=== PATIENT | female | born 1930 | race Caucasian/White ===

== ENCOUNTER → 2017-05-22 | Outpatient (CLI) | payer MEDICARE ==
[~2017-05-22] MED LIST: ALBU8.5H IH; AMOX-556 PO; ASPI-1267; AUG875 PO; AZI250 PO; AZIT-17 PO; AZIT-18 PO; BACDS PO; BENZ100C4 PO; CARV25TA78 PO; CEP500 PO; CEPH250C37 PO; GUALA600 PO; HCTZ25 PO; HYDR-2966 PO; HYDR-385 PO; LABE200T31 PO; LISI2.5T60; LISI5TAB25 PO; LOR5/325 PO; MET500; METF-410 PO; MULT-1335; OXYGEN INH; PRE20 PO; PRED20TA6 PO; SIMV-44 PO; TIO18R IH
--- NOTE | 2017-05-22 13:36 | RADIOLOGY IMAGING REPORT ---
FACILITY: [facility] PATIENT NAME: Sharon Rahman : 1930 MR: [id number] V: [id number] EXAM DATE: ORDERING PHYSICIAN: ALESSANDRO LYNN TECHNOLOGIST: Location: [facility] - [place] Patient: Sharon Rahman : 1930 Visit/Account:[id number] Date of Sevice: 05/22/2017 CHEST W/O CONTRAST History: History of breast cancer. Oxygen dependent. No other complaints. Additional history: Previous studies state patient has non-small cell lung cancer. TECHNIQUE: Contiguous axial images were performed through the chest to the level of the adrenal gla nds. No IV contrast was administered. Coronal and sagittal reformatting was also performed. One of t he following dose optimization techniques was utilized in the performance of this exam: Automated exp osure control; adjustment of the mA and/or kV according to the patient's size; or use of an iterative reconstruction technique. Specific details can be referenced in the facility's radiology CT exam o perational policy. COMPARISON STUDIES: Comparison chest CT 12/03/2016 and 06/11/2016. Lungs / Pleura: There is a pleural-based mass in the anterior right upper lobe which as increased i n size from previous exams. In November, it measured 2.8 x 1.4 cm in diameter and had not really marlene nged from May 2016. However, today it now measures 5.1 x 2.5 cm diameter and abuts the pleura over a wide area. It does not definitely invade the chest wall. There is biapical pulmonary consolidation which is stable from previous exams. There are multi focal small groundglass opacities in both lungs which are more numerous than the previous study. Several micronodules seen in the left lung are stabl e. Mediastinum/nodes: No definite evidence of mediastinal adenopathy. Heart and vessels: Coronary artery calcifications are noted. Heart normal in size. Musculoskeletal / Body wall: Degenerative changes noted. No focal lesions are seen. Upper abdomen: There are stable bilateral adrenal nodules. Additional findings: Again noted is a heterogenous appearance the thyroid gland compatible with a goi ter which is stable. Remote right mastectomy and right axillary lymph node dissection. IMPRESSION: Enlarging right anterior pleural-based lung mass is concerning for malignancy. This lies subjacent to the right mastectomy. Evolving radiation induced pulmonary changes or pneumonia also possible althou gh considered less likely. This mass is readily amenable to percutaneous CT-guided biopsy if deemed c linically appropriate Biapical pulmonary/pleural consolidation stable Multifocal small groundglass opacities in both lungs probably inflammatory in nature. Stable small adrenal nodules. Remote right mastectomy Report Dictated By: Joe Javed MD at 05/22/2017 12:37 PM Report E-Signed By: Joe Javed MD at 05/22/2017 1:32 PM WSN:[id number]
== END ==
LOC: CT 10:32
PROVIDERS: ATTEND Radiology Radiation Oncology
DX: R91.8 Other nonspecific abnormal finding of lung field (principal); Z90.11 Acquired absence of right breast and nipple
CPT/HCPCS: 71250

== ENCOUNTER 2017-06-01 15:00 | Emergency (ER) | payer MEDICARE ==
--- NOTE | 2017-06-01 15:08 | ER Report ---
History and Physical Time Seen By MD: 15:08 HPI/ROS CHIEF COMPLAINT: Vaginal bleeding HISTORY OF PRESENT ILLNESS: This is an 87-year-old female who presents to the emergency department for vaginal bleeding. Patient states that today she developed some UTI symptoms, burning sensation with urination and urgency ago. She is also concerned that for "a while now" she's had intermittent vaginal bleeding without pain. She says that she was nervous about coming in for an evaluation and today with the UTI symptoms she decided come in for further evaluation. She denies pain at this time. No aches or chills. No shortness of breath or chest pain. Patient does have a history of breast and lung CA. REVIEW OF SYSTEMS: Constitutional: No fever, no chills. Eyes: No discharge. ENT: No sore throat. Cardiovascular: No chest pain, no palpitations. Respiratory: No cough, no shortness of breath. Gastrointestinal: No abdominal pain, no vomiting. Genitourinary: As above. BAND NAILER: As above. Musculoskeletal: No back pain. Skin: No rashes. Neurological: No headache. Allergies: Coded Allergies: No Known Allergies (Verified Allergy, Mild, 10/28/16) Home Meds Active Scripts Nitrofurantoin Monohyd/M-Cryst (MACROBID 100 MG CAPSULE) 100 Mg Capsule, 100 MG PO BID for 7 Days, #14 CAPSULE Prov:SHELBY BUSTOS TRADE SHOW COORDINATOR-BC 06/01/17 Reported Medications Metformin Hcl (METFORMIN HCL) 500 Mg Tablet, 1 TAB PO QDAY, TAB 03/27/15 Lisinopril (LISINOPRIL) 5 Mg Tablet, 5 MG PO DAILY, #90 06/08/14 Carvedilol (CARVEDILOL) 25 Mg Tablet, 25 MG PO BID 12/16/12 Multivitamins W-Minerals (Multiple Vitamin) 1 Tab Tablet, DAILY 10/13/11 Aspirin (ADULT LOW DOSE ASPIRIN EC) 81 Mg Tablet.dr, DAILY 10/13/11 Simvastatin (Zocor) 40 Mg Tablet, 40 MG PO DAILY 10/13/11 Tiotropium [place] (Spiriva (Or Equiv)) 18 Mcg Inh, IH DAILY 10/13/11 Oxygen (Oxygen) 2 L Inha, 3 L INH, 0 Refills 3 L/min continuously. 06/14/07 Past Medical/Surgical History Patient has a past medical and surgical history of angina, hypertension, hypercholesterolemia, emphysema, pneumonia, COPD, colonoscopy, GERD, breast cancer with mastectomy, arthritis, wears dentures, wears glasses, non-insulin- dependent diabetic, skin cancer, lung cancer, radiation treatment, chemotherapy treatment, right rotator cuff repair, tonsillectomy, and several skin cancer excisions. Reviewed Nurses Notes: Yes Hx Smoking: No (QUIT 1999) Smoking Status: Former Smoker Hx Substance Use Disorder: No Hx Alcohol Use: Yes (very rare) Constitutional Vital Sign - Last 24 Hours 06/01/17 06/01/17 06/01/17 06/01/17 15:00 15:09 15:10 15:15 Pulse ??? 82 76 Resp 18 B/P (MAP) 158/64 158/64 (95) Pulse Ox 95 81 O2 Delivery Room Air 06/01/17 06/01/17 06/01/17 06/01/17 15:30 15:45 15:55 16:00 Pulse 74 ??? 72 B/P (MAP) ???/??? (1577) 145/114 (124) 140/65 (90) Pulse Ox 96 94 99 06/01/17 06/01/17 06/01/17 06/01/17 16:15 16:30 16:45 16:50 Pulse 74 ??? 75 75 B/P (MAP) ???/??? (7265) Pulse Ox 98 98 98 06/01/17 06/01/17 06/01/17 06/01/17 17:00 17:05 17:20 17:30 Pulse 75 75 B/P (MAP) 150/72 (98) ???/??? (1665) Pulse Ox 98 98 06/01/17 06/01/17 17:35 17:50 Pulse ??? 76 B/P (MAP) 153/87 (109) Pulse Ox 93 Intake and Output 06/01/17 06/01/17 06/02/17 15:00 23:00 07:00 Output Total 50 ml Balance -50 ml Physical Exam General Appearance: The patient is alert, has no immediate need for airway protection and no signs of toxicity. Eyes: Pupils equal and round no pallor or injection. ENT, Mouth: Mucous membranes are moist. Dentures. Respiratory: There are no retractions, lungs are clear to auscultation. Cardiovascular: Regular rate and rhythm, very faint systolic murmur, no clicks or rubs. Gastrointestinal: Abdomen is soft and non tender, no masses, bowel sounds normal. Neurological: Alert and oriented 4. Moving all extremities. No focal neuro deficits. Following all commands. Skin: Warm and dry, no rashes. Musculoskeletal: Neck is supple non tender. Extremities are nontender, nonswollen and have full range of motion. DIFFERENTIAL DIAGNOSIS: After history and physical exam differential diagnosis was considered for abdominal pain in a female including but not limited to ovarian cyst, pelvic inflammatory disease, ovarian torsion, urinary tract infection, ovarian cancer, uterine cancer, metastatic cancer and appendicitis. Medical Decision Making Data Points Result Diagram: 06/01/17 1555 06/01/17 1555 Laboratory Hematology Test 06/01/17 15:55 Red Blood Count 3.65 M/uL (4.17-5.56) Mean Corpuscular Volume 88.7 fL (80.0-96.0) Mean Corpuscular Hemoglobin 29.8 pg (26.0-33.0) Mean Corpuscular Hemoglobin Concent 33.6 g/dL (32.0-36.0) Red Cell Distribution Width 15.0 % (11.5-14.5) Mean Platelet Volume 8.5 fL (7.2-11.1) Neutrophils (%) (Auto) 71.7 % (39.4-72.5) Lymphocytes (%) (Auto) 16.0 % (17.6-49.6) Monocytes (%) (Auto) 7.5 % (4.1-12.4) Eosinophils (%) (Auto) 3.8 % (0.4-6.7) Basophils (%) (Auto) 1.0 % (0.3-1.4) Nucleated RBC Relative Count (auto) 0.0 /100WBC Neutrophils # (Auto) 6.4 K/uL (2.0-7.4) Lymphocytes # (Auto) 1.4 K/uL (1.3-3.6) Monocytes # (Auto) 0.7 K/uL (0.3-1.0) Eosinophils # (Auto) 0.3 K/uL (0.0-0.5) Basophils # (Auto) 0.1 K/uL (0.0-0.1) Nucleated RBC Absolute Count (auto) 0.00 K/uL Urine Color Yellow Urine Clarity Cloudy Urine pH 6.0 pH (4.8-9.5) Urine Specific [place] 1.018 Urine Protein 100 mg/dL (NEGATIVE) Urine Glucose (UA) Negative mg/dL (NEGATIVE) Urine Ketones Negative mg/dL (NEGATIVE) Urine Blood Small (NEGATIVE) Urine Nitrite Positive (NEGATIVE) Urine Bilirubin Negative (NEGATIVE) Urine Urobilinogen Negative mg/dL (0.2-1.9) Urine Leukocyte Esterase Moderate (NEGATIVE) Urine RBC 11 /HPF (0-2/HPF) Urine WBC 206 /HPF (0-5/HPF) Urine Squamous Epithelial Cells None /LPF (NONE-FEW) Urine Bacteria Moderate /HPF (NONE-FEW) Urine Mucus None /HPF (NONE-FEW) Sodium Level 137 mmol/L (137-145) Potassium Level 4.0 mmol/L (3.5-5.0) Chloride Level 99 mmol/L (98-107) Carbon Dioxide Level 26 mmol/L (22-31) Blood Urea Nitrogen 16 mg/dl (7-18) Creatinine 0.60 mg/dl (0.52-1.04) Glomerular Filtration Rate Calc > 60.0 Random Glucose 81 mg/dl (75-110) Calcium Level 9.5 mg/dl (8.4-10.2) Total Bilirubin 1.0 mg/dl (0.2-1.3) Aspartate Amino Transf (AST/SGOT) 21 U/L (0-35) Alanine Aminotransferase (ALT/SGPT) 28 U/L (0-56) Alkaline Phosphatase 132 U/L (0-126) Total Protein 7.9 gm/dl (6.3-8.2) Albumin 4.1 g/dl (3.5-5.0) Chemistry Test 06/01/17 15:55 White Blood Count 9.0 k/uL (4.5-11.0) Red Blood Count 3.65 M/uL (4.17-5.56) Hemoglobin 10.9 g/dL (12.0-16.0) Hematocrit 32.4 % (34.0-47.0) Mean Corpuscular Volume 88.7 fL (80.0-96.0) Mean Corpuscular Hemoglobin 29.8 pg (26.0-33.0) Mean Corpuscular Hemoglobin Concent 33.6 g/dL (32.0-36.0) Red Cell Distribution Width 15.0 % (11.5-14.5) Platelet Count 264 K/uL (150-450) Mean Platelet Volume 8.5 fL (7.2-11.1) Neutrophils (%) (Auto) 71.7 % (39.4-72.5) Lymphocytes (%) (Auto) 16.0 % (17.6-49.6) Monocytes (%) (Auto) 7.5 % (4.1-12.4) Eosinophils (%) (Auto) 3.8 % (0.4-6.7) Basophils (%) (Auto) 1.0 % (0.3-1.4) Nucleated RBC Relative Count (auto) 0.0 /100WBC Neutrophils # (Auto) 6.4 K/uL (2.0-7.4) Lymphocytes # (Auto) 1.4 K/uL (1.3-3.6) Monocytes # (Auto) 0.7 K/uL (0.3-1.0) Eosinophils # (Auto) 0.3 K/uL (0.0-0.5) Basophils # (Auto) 0.1 K/uL (0.0-0.1) Nucleated RBC Absolute Count (auto) 0.00 K/uL Urine Color Yellow Urine Clarity Cloudy Urine pH 6.0 pH (4.8-9.5) Urine Specific [place] 1.018 Urine Protein 100 mg/dL (NEGATIVE) Urine Glucose (UA) Negative mg/dL (NEGATIVE) Urine Ketones Negative mg/dL (NEGATIVE) Urine Blood Small (NEGATIVE) Urine Nitrite Positive (NEGATIVE) Urine Bilirubin Negative (NEGATIVE) Urine Urobilinogen Negative mg/dL (0.2-1.9) Urine Leukocyte Esterase Moderate (NEGATIVE) Urine RBC 11 /HPF (0-2/HPF) Urine WBC 206 /HPF (0-5/HPF) Urine Squamous Epithelial Cells None /LPF (NONE-FEW) Urine Bacteria Moderate /HPF (NONE-FEW) Urine Mucus None /HPF (NONE-FEW) Glomerular Filtration Rate Calc > 60.0 Calcium Level 9.5 mg/dl (8.4-10.2) Total Bilirubin 1.0 mg/dl (0.2-1.3) Aspartate Amino Transf (AST/SGOT) 21 U/L (0-35) Alanine Aminotransferase (ALT/SGPT) 28 U/L (0-56) Alkaline Phosphatase 132 U/L (0-126) Total Protein 7.9 gm/dl (6.3-8.2) Albumin 4.1 g/dl (3.5-5.0) Urinalysis Test 06/01/17 15:55 Urine Color Yellow Urine Clarity Cloudy Urine pH 6.0 pH (4.8-9.5) Urine Specific [place] 1.018 Urine Protein 100 mg/dL (NEGATIVE) Urine Glucose (UA) Negative mg/dL (NEGATIVE) Urine Ketones Negative mg/dL (NEGATIVE) Urine Blood Small (NEGATIVE) Urine Nitrite Positive (NEGATIVE) Urine Bilirubin Negative (NEGATIVE) Urine Urobilinogen Negative mg/dL (0.2-1.9) Urine Leukocyte Esterase Moderate (NEGATIVE) Urine RBC 11 /HPF (0-2/HPF) Urine WBC 206 /HPF (0-5/HPF) Urine Squamous Epithelial Cells None /LPF (NONE-FEW) Urine Bacteria Moderate /HPF (NONE-FEW) Urine Mucus None /HPF (NONE-FEW) EKG/Imaging Imaging Location: [facility] - [place] Patient: Sharon Rahman : 1930 Visit/Account:[id number] [facility]: 06/01/2017 CT abdomen and pelvis with IV contrast Indication: Vaginal bleeding. Evaluate for cancer. Comparison: None available. . Technique: Axial CT images were obtained through the abdomen and pelvis during injection of nonionic iodinated intravenous contrast. Reformatted coronal and sagittal images were also obtained. One of the following dose optimization techniques was utilized in the performance of this exam: Automated exposure control; adjustment of the mA and/ or kV according to the patient's size; or use of an iterative reconstruction technique. Specific details can be referenced in the facility's radiology CT exam operational policy. Contrast: 75 ml of Isovue-370 IV contrast. Findings: Lower lung rico: Both lungs show some scarring. The right lateral lower lobe does show a 7 mm nodular type opacity. The left lower lobe shows a 4 mm nodular type opacity and a 5 mm nodular type opacity. These appear to be stable from the chest CT on 05/22/2017. Liver: No focal parenchymal abnormality of the liver. Biliary: Gallbladder appears unremarkable as well as the intra and extra hepatic biliary system. Pancreas: No focal normality. Spleen: No focal abnormality. Adrenal glands: Both adrenal glands do show thickening which could be due to hyperplasia. No discrete defined nodule. Kidneys / retroperitoneum: The right superior kidney does show 3 mm stone in the collecting system without hydronephrosis. No other stones or hydronephrosis in either kidney. The right kidney shows a couple subcentimeter hypodensities are too small to characterize and most likely tiny cysts. No discrete solid renal lesions. Bowel / peritoneum / mesenteries: Sigmoid colon does show a few diverticula without pericolonic inflammation. The colon shows no other focal abnormality. The appendix is not definitely visualized. No secondary signs of appendicitis. Small bowel shows no focal normality or obstruction. Stomach is decompressed and grossly normal. No free air, free fluid, fluid collections or areas of inflammation. Lymph node assessment: No pathologic adenopathy identified. Pelvic structures: Status post hysterectomy. The vaginal cuff shows no focal normality. The right adnexal region does show a 2.4 cm cyst. If the urinary bladder does show circumferential wall thickening without focal abnormality. Vessels: Atherosclerotic calcific changes of the aorta. The infrarenal abdominal aorta does show aneurysmal dilatation measuring 3.4 x 3.6 cm with a length of approximately 4.6 cm. No periaortic fluid or inflammation. No other indication of aneurysm. Musculoskeletal / Body wall: No acute or aggressive osseous abnormality. Degenerative changes spine and hips. Hemangioma in the L2 vertebral body. IMPRESSION: 1. Vaginal cuff shows no focal abnormality. There is a right adnexal cyst present. 2. The urinary bladder shows circumferential wall thickening which is mildly hazy. This could represent infection or inflammation. No discrete focal abnormality of the urinary bladder. 3. Diverticulosis without radiographic indication diverticulitis. 4. Nonobstructing right renal calculi. 5. 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 6. Other chronic findings as above. Report Dictated By: Rosendo Hernandez at 06/01/2017 4:43 PM Report E-Signed By: Rosendo Hernandez at 06/01/2017 4:57 PM WSN:[id number] ED Course/Re-evaluation Clinical Indication for ER IV: IV Access ED Course The patient was admitted to room. A history of physical obtained. Differential diagnoses were considered. An IV was started. A CBC, CMP were obtained. Laboratory studies unremarkable. A UA was obtained. UA showing a urinary tract infection. A contrast CT abdomen and pelvis showing a right adnexal cyst, bladder wall thickening which could represent infection no focal abnormality of the bladder, diverticulosis, right sided nonobstructing renal calculi, aneurysmal dilation without acute abnormality. I did review these results with the patient. I also offered a pelvic exam and the patient declined as noted below, she will follow up with her primary care provider or B[facility] for follow- up on the vaginal bleeding. Patient continues to deny pain. Patient has no other complaints. Patient was agreeable with this plan of care and discharged home. 06/01/2017 5:37:47 pm I did explain to the patient that I was concerned about the vaginal bleeding and I would need to visualize the vaginal vault and the surrounding area I did offer a pelvic exam and she declined a pelvic exam she states she did feel better with an BAND NAILER. I said that's fine shirt of follow- up within the next week for evaluation. Patient was in agreement with this. Decision to Disposition Date: Jun 01, 2017 Decision to Disposition Time: 17:37 Depart Departure Latest Vital Signs Vital Signs Date Time Temp Pulse Resp B/P (MAP) Pulse Ox O2 Delivery O2 Flow Rate FiO2 06/01/17 17:50 76 153/87 (109) 93 06/01/17 15:09 18 Room Air Impression: Primary Impression: Urinary tract infection Additional Impression: Renal calculus, right Condition: Improved Disposition: HOME OR SELF-CARE Referrals: YARELY STERLING MD (PCP) YARELY JACOBSEN MD [facility] Nitrofurantoin Monohyd/M-Cryst (MACROBID 100 MG CAPSULE) 100 Mg Capsule 100 MG PO BID for 7 Days, #14 CAPSULE Prov: SHELBY BUSTOS TRADE SHOW COORDINATOR-BC 06/01/17 Patient Instructions: Kidney Stones (ED), Urinary Tract Infection in Women (ED) Additional Instructions: Drink plenty of fluids. Get plenty of rest. Take the antibiotics as prescribed. Follow-up with your primary care provider as needed. Follow-up with BAND NAILER for a pelvic exam within the next 7 days. May return to the emergency department as needed or for worsening symptoms. Problem Qualifiers Primary Impression: Urinary tract infection Urinary tract infection type: acute cystitis Hematuria presence: with hematuria Qualified Codes: N30.01 - Acute cystitis with hematuria SHELBY BUSTOS-DEDRICK Jun 01, 2017 15:08
[2017-06-01] MEDS ORDERED: IOPAMIDOL 76% 75 ML INFUS BTL 75 ML ONE (15:52)
[2017-06-01 16:20] LABS: PLATELET COUNT, AUTOMATED 264 K/uL (150-450)
--- NOTE | 2017-06-01 17:02 | RADIOLOGY IMAGING REPORT ---
FACILITY: [facility] PATIENT NAME: Sharon Rahman : 1930 MR: [id number] V: [id number] EXAM DATE: ORDERING PHYSICIAN: SHELBY BUSTOS TECHNOLOGIST: Location: [facility] - [place] Patient: Sharon Rahman : 1930 Visit/Account:[id number] Date of Sevice: 06/01/2017 CT abdomen and pelvis with IV contrast Indication: Vaginal bleeding. Evaluate for cancer. Comparison: None available. . Technique: Axial CT images were obtained through the abdomen and pelvis during injection of nonioni c iodinated intravenous contrast. Reformatted coronal and sagittal images were also obtained. One of the following dose optimization techniques was utilized in the performance of this exam: Autom ated exposure control; adjustment of the mA and/or kV according to the patient's size; or use of an i terative reconstruction technique. Specific details can be referenced in the facility's radiology C T exam operational policy. Contrast: 75 ml of Isovue-370 IV contrast. Findings: Lower lung rico: Both lungs show some scarring. The right lateral lower lobe does show a 7 mm nodul ar type opacity. The left lower lobe shows a 4 mm nodular type opacity and a 5 mm nodular type opacit y. These appear to be stable from the chest CT on 05/22/2017. Liver: No focal parenchymal abnormality of the liver. Biliary: Gallbladder appears unremarkable as well as the intra and extra hepatic biliary system. Pancreas: No focal normality. Spleen: No focal abnormality. Adrenal glands: Both adrenal glands do show thickening which could be due to hyperplasia. No discrete defined nodule. Kidneys / retroperitoneum: The right superior kidney does show 3 mm stone in the collecting system wi thout hydronephrosis. No other stones or hydronephrosis in either kidney. The right kidney shows a co uple subcentimeter hypodensities are too small to characterize and most likely tiny cysts. No discret e solid renal lesions. Bowel / peritoneum / mesenteries: Sigmoid colon does show a few diverticula without pericolonic infla mmation. The colon shows no other focal abnormality. The appendix is not definitely visualized. No se condary signs of appendicitis. Small bowel shows no focal normality or obstruction. Stomach is decomp ressed and grossly normal. No free air, free fluid, fluid collections or areas of inflammation. Lymph node assessment: No pathologic adenopathy identified. Pelvic structures: Status post hysterectomy. The vaginal cuff shows no focal normality. The right adnexal region does show a 2.4 cm cyst. If the urinary bladder does show circumferential wall thicken ing without focal abnormality. Vessels: Atherosclerotic calcific changes of the aorta. The infrarenal abdominal aorta does show aneu rysmal dilatation measuring 3.4 x 3.6 cm with a length of approximately 4.6 cm. No periaortic fluid o r inflammation. No other indication of aneurysm. Musculoskeletal / Body wall: No acute or aggressive osseous abnormality. Degenerative changes spine a nd hips. Hemangioma in the L2 vertebral body. IMPRESSION: 1. Vaginal cuff shows no focal abnormality. There is a right adnexal cyst present. 2. The urinary bladder shows circumferential wall thickening which is mildly hazy. This could represe nt infection or inflammation. No discrete focal abnormality of the urinary bladder. 3. Diverticulosis without radiographic indication diverticulitis. 4. Nonobstructing right renal calculi. 5. 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 6. Other chronic findings as above. Report Dictated By: Rosendo Hernandez at 06/01/2017 4:43 PM Report E-Signed By: Rosendo Hernandez at 06/01/2017 4:57 PM WSN:[id number]
[2017-06-01] MEDS ORDERED: NITR-105 PO (17:35)
[2017-06-01 17:50] VITALS: BP 153/87
== END 2017-06-01 17:55 | disposition home or self-care (01) ==
LOC: ER 15:17
DX: N30.01 Acute cystitis with hematuria (principal); N20.0 Calculus of kidney
CPT/HCPCS: 74177; 81001; 85025; 99284; A4353; Q9967; 82040; 82247; 82310; 82374; 82435; 82565; 82947; 84075; 84132; 84155; 84295; 84450; 84460; 84520

== ENCOUNTER 2017-07-27 12:50 | Emergency (ER) | payer MEDICARE ==
[~2017-07-27 12:50] MED LIST changes: +NITR-105 PO
--- NOTE | 2017-07-27 12:59 | ER Report ---
History and Physical Time Seen By MD: 12:58 HPI/ROS CHIEF COMPLAINT: Dysuria HISTORY OF PRESENT ILLNESS: 87-year-old female patient presents to emergency room with complaint of dysuria. She states that for the last cold a she's been having significant amounts of burning with urination, frequency, urgency. She states that she's not had any fevers, she denies any flank pain. She states she did not think they could be a urinary tract infection until last night. She states prior to that she's been thinking that it was pain caused from her vaginal cancer. Patient states she was diagnosed last month vaginal cancer has been seeing several specialists for that. She denies any confusion. Patient has not taken any medication for this. REVIEW OF SYSTEMS: Respiratory: No cough, no dyspnea. Cardiovascular: No chest pain, no palpitations. Gastrointestinal: No vomiting, no abdominal pain. Musculoskeletal: No back pain. Allergies: Coded Allergies: No Known Allergies (Verified Allergy, Mild, 10/28/16) Home Meds Active Scripts Cephalexin 500 Mg Tab (KEFLEX 500 MG TAB) 500 Mg Tablet, 500 MG PO Q6H, #28 TAB Prov:LEAH MICHEL SOLE PAINTER 07/27/17 Reported Medications Metformin Hcl (METFORMIN HCL) 500 Mg Tablet, 1 TAB PO QDAY, TAB 03/27/15 Lisinopril (LISINOPRIL) 5 Mg Tablet, 5 MG PO DAILY, #90 06/08/14 Carvedilol (CARVEDILOL) 25 Mg Tablet, 25 MG PO BID 12/16/12 Multivitamins W-Minerals (Multiple Vitamin) 1 Tab Tablet, DAILY 10/13/11 Aspirin (ADULT LOW DOSE ASPIRIN EC) 81 Mg Tablet.dr, DAILY 10/13/11 Simvastatin (Zocor) 40 Mg Tablet, 40 MG PO DAILY 10/13/11 Tiotropium [place] (Spiriva (Or Equiv)) 18 Mcg Inh, IH DAILY 10/13/11 Oxygen (Oxygen) 2 L Inha, 3 L INH, 0 Refills 3 L/min continuously. 06/14/07 Past Medical/Surgical History Patient has a past medical history of angina, hypertension, hyperlipidemia, emphysema, pneumonia, COPD, breast cancer with right mastectomy, arthritis, diabetes, skin cancer, alcohol use, vaginal cancer, skin cancer, lung cancer. Patient has surgical history of skin cancers removed, tonsillectomy, right shoulder surgery, hysterectomy, appendectomy. Patient has family medical history of diabetes, cancer. Reviewed Nurses Notes: Yes Hx Smoking: No (QUIT 1999) Smoking Status: Former Smoker Hx Substance Use Disorder: No Hx Alcohol Use: Yes (very rare) Constitutional Vital Sign - Last 24 Hours 07/27/17 07/27/17 07/27/17 12:57 13:40 14:00 Temp 97.8 98.1 Pulse 84 80 Resp 18 14 B/P (MAP) 142/52 133/98 (110) Pulse Ox 91 95 O2 Delivery Nasal Cannula Nasal Cannula O2 Flow Rate 2 Intake and Output 07/27/17 07/27/17 07/28/17 15:00 23:00 07:00 Output Total 25 ml Balance -25 ml Physical Exam General Appearance: The patient is alert, has no immediate need for airway protection and no current signs of toxicity. Respiratory: Chest is non tender, lungs are clear to auscultation. Cardiac: regular rate and rhythm Gastrointestinal: Abdomen is soft and non tender, no masses, bowel sounds normal. Patient had no CVA tenderness. Musculoskeletal: Neck: Neck is supple and non tender. Extremities have full range of motion and are non tender. Skin: No rashes or lesions. DIFFERENTIAL DIAGNOSIS: After history and physical exam differential diagnosis was considered for urinary tract infection, pyelonephritis, pain secondary to vaginal cancer. Medical Decision Making Data Points Laboratory Hematology Test 07/27/17 13:25 Urine Color [place] Urine Clarity Slightly-cloudy Urine pH 5.0 pH (4.8-9.5) Urine Specific [place] 1.021 Urine Protein 30 mg/dL (NEGATIVE) Urine Glucose (UA) Negative mg/dL (NEGATIVE) Urine Ketones Negative mg/dL (NEGATIVE) Urine Blood Negative (NEGATIVE) Urine Nitrite Negative (NEGATIVE) Urine Bilirubin Negative (NEGATIVE) Urine Urobilinogen 2.0 mg/dL (0.2-1.9) Urine Leukocyte Esterase Moderate (NEGATIVE) Urine RBC 1 /HPF (0-2/HPF) Urine WBC 77 /HPF (0-5/HPF) Urine Squamous Epithelial Cells None /LPF (NONE-FEW) Urine Bacteria Few /HPF (NONE-FEW) Urine Hyaline Casts Few /LPF (NONE-FEW) Urine Mucus Few /HPF (NONE-FEW) Chemistry Test 07/27/17 13:25 Urine Color [place] Urine Clarity Slightly-cloudy Urine pH 5.0 pH (4.8-9.5) Urine Specific [place] 1.021 Urine Protein 30 mg/dL (NEGATIVE) Urine Glucose (UA) Negative mg/dL (NEGATIVE) Urine Ketones Negative mg/dL (NEGATIVE) Urine Blood Negative (NEGATIVE) Urine Nitrite Negative (NEGATIVE) Urine Bilirubin Negative (NEGATIVE) Urine Urobilinogen 2.0 mg/dL (0.2-1.9) Urine Leukocyte Esterase Moderate (NEGATIVE) Urine RBC 1 /HPF (0-2/HPF) Urine WBC 77 /HPF (0-5/HPF) Urine Squamous Epithelial Cells None /LPF (NONE-FEW) Urine Bacteria Few /HPF (NONE-FEW) Urine Hyaline Casts Few /LPF (NONE-FEW) Urine Mucus Few /HPF (NONE-FEW) Urinalysis Test 07/27/17 13:25 Urine Color [place] Urine Clarity Slightly-cloudy Urine pH 5.0 pH (4.8-9.5) Urine Specific [place] 1.021 Urine Protein 30 mg/dL (NEGATIVE) Urine Glucose (UA) Negative mg/dL (NEGATIVE) Urine Ketones Negative mg/dL (NEGATIVE) Urine Blood Negative (NEGATIVE) Urine Nitrite Negative (NEGATIVE) Urine Bilirubin Negative (NEGATIVE) Urine Urobilinogen 2.0 mg/dL (0.2-1.9) Urine Leukocyte Esterase Moderate (NEGATIVE) Urine RBC 1 /HPF (0-2/HPF) Urine WBC 77 /HPF (0-5/HPF) Urine Squamous Epithelial Cells None /LPF (NONE-FEW) Urine Bacteria Few /HPF (NONE-FEW) Urine Hyaline Casts Few /LPF (NONE-FEW) Urine Mucus Few /HPF (NONE-FEW) ED Course/Re-evaluation ED Course Patient was admitted to an exam room, history and physical were obtained. Differential diagnoses were considered. On examination patient had clear lungs, heart was regular, patient had no CVA tenderness. A urine catheterization was done for urine sample. That did show moderate leukocyte esterase with 77 white blood cells per high-power field. I discussed findings with patient. We will go ahead and start her on antibiotics, Keflex and culture her urine. I believe that her discomfort is caused by urinary tract infection. Patient verbalized understanding and agreement with plan. Decision to Disposition Date: Jul 27, 2017 Decision to Disposition Time: 13:53 Depart Departure Latest Vital Signs Vital Signs Date Time Temp Pulse Resp B/P (MAP) Pulse Ox O2 Delivery O2 Flow Rate FiO2 07/27/17 14:00 98.1 07/27/17 13:40 80 14 133/98 (110) 95 Nasal Cannula 2 Impression: Primary Impression: Urinary tract infection Condition: Improved Disposition: HOME OR SELF-CARE Referrals: YARELY STERLING MD (PCP) New Scripts Cephalexin 500 Mg Tab (KEFLEX 500 MG TAB) 500 Mg Tablet 500 MG PO Q6H, #28 TAB Prov: LEAH MICHEL 07/27/17 Patient Instructions: Urinary Tract Infection in Women (ED) Additional Instructions: Increase fluid intake. Get plenty of rest. Follow up with your primary care provider in the next week to have a repeat urinalysis to make sure that the infection is clearing. We are culturing the urine and will call if we need to change antibiotics. Return to the ER if condition worsens. Problem Qualifiers Primary Impression: Urinary tract infection Urinary tract infection type: acute cystitis Hematuria presence: without hematuria Qualified Codes: N30.00 - Acute cystitis without hematuria LEAH MICHEL Jul 27, 2017 12:59
[2017-07-27 13:40] VITALS: BP 133/98
[2017-07-27] MEDS ORDERED: CEPH500T7 PO (13:52)
== END 2017-07-27 14:00 | disposition home or self-care (01) ==
LOC: ER 13:10
DX: N30.00 Acute cystitis without hematuria (principal)
CPT/HCPCS: 81001; 87088; 99282; A4353; 87077; 87186

== ENCOUNTER 2017-08-22 10:09 | Outpatient (RCR) | payer MEDICARE ==
[~2017-08-22] VITALS: Ht 163.8 cm; Wt 57.6 kg
[~2017-08-22 10:09] MED LIST changes: +ACET500T68 PO; +CEPH500T7 PO; -METF-410 PO; +METF-411 PO
[2017-08-22 10:16] VITALS: BP 104/52
[2017-08-22] MEDS ORDERED: NS(*) 0.9% 1000 ML BAG 1,000 ML IV PRN (16:40)
[2017-08-22] MEDS ORDERED: WATER FOR INJ,STERILE 20 ML IVP PRN (16:40)
[2017-08-22] MEDS ORDERED: NS(*) 0.9% 500 ML BAG 500 ML IV PRN (16:40)
[2017-08-22] MEDS ORDERED: ALTEPLASE RECOMB 2 MG VIAL IVP PRN (16:40)
[2017-08-22] MEDS ORDERED: DEXTROSE 5%(*) 100 ML BAG 100 ML IVPB PRN (16:40)
[2017-08-22] MEDS ORDERED: NS(*) 0.9% 100 ML BAG 100 ML IVPB PRN (16:40)
[2017-08-22] MEDS ORDERED: KCL IVPB ONE (16:45)
[2017-08-22] MEDS ORDERED: NS IVPB ONE (16:45)
[2017-08-22] MEDS ORDERED: MAGNESIUM SULFATE IVPB ONE (16:45)
[2017-08-22] MEDS ORDERED: DEXAMETHASONE SOD(*) 10MG/ML 10 MG in NS(*) 0.9% 50 ML BAG 50 ML IVP PRN (16:45)
[2017-08-22] MEDS ORDERED: FOSAPREPITANT DIM 150 MG/5 ML 150 MG in NS(*) 0.9% 250 ML BAG 245 ML IVPB PRN (16:45)
[2017-08-22] MEDS ORDERED: PALONOSETRON 0.25 MG/5 ML VIAL IVP PRN (16:45)
--- NOTE | 2017-08-22 17:58 | ONCOLOGY CONSULTATION ---
EVENT DATE: August 22, 2017 REFERRING PHYSICIAN Berta Moarles MD REASON FOR CONSULTATION Evaluation and management of concurrent chemoradiation for squamous cell carcinoma of the vagina. HISTORY OF PRESENT ILLNESS Patient is an 87-year-old female who has a history of non-small cell lung cancer of the left upper lobe 1.4 cm tumor treated with radiosurgery with single fraction at 34 Gy in 2012. She had a remote history of right breast cancer status post right mastectomy in 1993, treated after that with chemotherapy and radiation therapy. 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 It was not clear whether there was cavitation versus enclosed emphysematous change in the right lung apex. There is a new hypermetabolic activity within the right apical pleural parenchymal opacities exhibiting SUV of 11.7. There are multiple new irregular bilateral pulmonary nodules. Soft tissue prominence of the vagina with SUV 15 and gynecologic consultation recommended. Patient had a biopsy of the left labial mass on June 23, 2017 under the direction of Dr. Dalal and the pathology showed markedly complex lesion representing at least high grade squamous intraepithelial lesion JOSE 3 for sites suspicious for, but not diagnostic of early invasion. Patient saw Dr. Yessi Huber on July 17, 2017, who did not think that her disease is resectable and recommended primary chemoradiation. Patient is complaining of vaginal pain and bleeding. And she started radiation therapy to her vaginal mass on August 21, 2017. PAST MEDICAL HISTORY 1. Left upper lobe non-small cell lung cancer diagnosed January 26, 2013. 2. Diabetes mellitus. 3. Hypercholesterolemia. 4. Hypertension. 5. 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 6. COPD. PAST SURGICAL HISTORY 1. Tonsillectomy. 2. Appendectomy. 3. Hysterectomy. 4. Right breast mastectomy in 1993. 5. Rotator cuff repair. FAMILY HISTORY Sister had colon cancer. SOCIAL HISTORY Patient is a . She lives alone. She has one son and one daughter, but she lost one of her children. 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 She quit smoking in 2000 after one and a half to two packs a day for nearly 50 years. She drinks occasionally. Denies any abuse of illicit drugs. CURRENT MEDICATIONS 1. Metformin 500 mg once daily. 2. Lisinopril 5 mg daily. 3. Carvedilol 25 mg twice daily. 4. Multivitamin once daily. 5. Aspirin 81 mg daily. 6. Zocor 40 mg daily. 7. Spiriva 18 mcg inhaler once daily. 8. Oxygen 2L per minute. ALLERGIES No known drug allergies. REVIEW OF SYSTEMS CONSTITUTIONAL: No appetite or weight change. No fever, chills. Patient has sweating. No recent infection. HEENT: Ears: No tinnitus or hearing problem. Nose: She has nasal discharge. No epistaxis. Throat: No sore throat or mouth ulcers. Eyes: No diplopia or visual changes. RESPIRATORY: She has cough and shortness of breath. No expectoration or hemoptysis. CARDIOVASCULAR: No chest pain, orthopnea, or paroxysmal nocturnal dyspnea (PND) . No edema. No palpitations. GASTROINTESTINAL: No nausea or vomiting. She has diarrhea. No constipation. She has also some blood in her stool sometimes. GENITOURINARY: No hematuria or dysuria. MUSCULOSKELETAL: No pain in the muscles, joints or bones. NEUROLOGICAL: She has occasional headache. No tingling or numbness in the hands or feet. No convulsions. HEMATOLOGIC/LYMPHATIC: She has rectal and vaginal bleeding. She is weak, tired and fatigued. No enlarged lymph nodes. SKIN: No skin rash or lumps. PSYCHIATRIC: No anxiety or depression. PHYSICAL EXAMINATION GENERAL: Looks stable. Well-developed, well-nourished, and in no acute distress. VITAL SIGNS: Blood pressure 104/52, pulse 83 per minute, respirations 16 per minute, temperature 97, pulse ox 90% on room air. HEENT: Head: Atraumatic. No sinus tenderness to palpation. Eyes: No icterus or conjunctivitis. Mouth and Throat: No oral thrush or mucositis. NECK: Supple. No cervical or supraclavicular lymphadenopathy. LUNGS: Clear to auscultation and percussion bilaterally. HEART: Regular rate and rhythm. No gallops, murmurs, clicks or rubs. ABDOMEN: Soft and lax. No tenderness. No hepatosplenomegaly. No masses. EXTREMITIES: No cyanosis, clubbing or edema. LYMPHATICS: No peripheral lymphadenopathy. NEUROLOGICAL: Conscious, alert and oriented times three. No focal motor or sensory deficits. PSYCHIATRIC: Mood and affect appear normal. SKIN: No skin rash, bruise or purpuric eruption. ASSESSMENT 1. 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 PET/CT scan was done on June 18, 2017 which revealed soft tissue prominence of the vagina with SUV 15. Patient had a biopsy of the left labial mass on June 23, [address] Dalal and the pathology showed markedly complex lesion representing at least high grade squamous cell intraepithelial lesion JOSE 3 for sites suspicious for, but not diagnostic of early invasion. Patient has been evaluated by Dr.Jennifer Huber , July 17, 2017, who did not think that her disease is resectable and recommended primary chemoradiation. Patient started radiation therapy on July. I am planning to treat her with cisplatin weekly as radiosensitizer during her radiation therapy. I spent a long time with the patient explaining the plan of management and the side effects expected from chemotherapy. For the administration of chemotherapy I am planning to place a PICC line. I am planning to start her treatment next week to go along with her radiation therapy. I will see her in a week after starting chemotherapy with CBC, chem panel and magnesium, which will be repeated weekly. Patient was also advised to increase her fluid intake during her chemotherapy. 2. History of what looks like inflammatory breast cancer diagnosed in 1993, status post neoadjuvant chemotherapy followed by surgery and radiation therapy. 3. History of non-small cell lung cancer of the left upper lobe of the lung 1.4 cm, treated with radiosurgery with single fraction 34 Gy in 2012. PLAN 1. PICC line placement. 2. Check CBC, chem panel and magnesium level weekly, to start prior to her first dose of chemotherapy. 3. Patient to return in one week after starting chemotherapy with cisplatin weekly with CBC, chem panel and magnesium. 4. Continue radiation therapy under care of Dr. Morales. 5. Increase fluid intake. 6. Patient to contact us for any new concerns or complaints. MTDD
[2017-08-28] MEDS ORDERED: NS 0.9% IVPB PRN (08:00)
[2017-08-28] MEDS ORDERED: CISPLATIN IVPB PRN (08:00)
[2017-09-03] MEDS ORDERED: SILV20CR2 TP (11:40)
== END 2017-09-09 10:28 | disposition home or self-care (01) ==
LOC: ONC 10:09
PROVIDERS: ATTEND Internal Medicine Hematology
DX: C52 Malignant neoplasm of vagina (principal); Z85.3 Personal history of malignant neoplasm of breast; Z85.118 Personal history of other malignant neoplasm of bronchus and lung; Z87.891 Personal history of nicotine dependence; Z79.899 Other long term (current) drug therapy; R53.1 Weakness; R53.83 Other fatigue; R05 Cough; R06.02 Shortness of breath
CPT/HCPCS: 99202

== ENCOUNTER 2017-09-05 10:30 | Outpatient (RCR) | payer MEDICARE ==
[2016-12-03 09:58] VITALS: BP 142/64
[~2017-09-05 10:30] MED LIST changes: +SILV20CR2 TP
== END 2017-09-07 ==
LOC: RAON 10:30
PROVIDERS: ATTEND Radiology Radiation Oncology
DX: Z51.0 Encounter for antineoplastic radiation therapy (principal); C34.12 Malignant neoplasm of upper lobe, left bronchus or lung; C51.9 Malignant neoplasm of vulva, unspecified; Z85.3 Personal history of malignant neoplasm of breast; R91.8 Other nonspecific abnormal finding of lung field; Z90.11 Acquired absence of right breast and nipple; E11.9 Type 2 diabetes mellitus without complications; E78.00 Pure hypercholesterolemia, unspecified; I10 Essential (primary) hypertension; Z92.3 Personal history of irradiation; Z79.82 Long term (current) use of aspirin; Z79.899 Other long term (current) drug therapy; Z92.21 Personal history of antineoplastic chemotherapy
CPT/HCPCS: 77280; 77290; 77300; 77301; 77331; 77338; 77370; 77386; G0463; 99202; 99211; 99212; 99213

== ENCOUNTER → 2017-10-03 | Outpatient (CLI) | payer MEDICARE ==
--- NOTE | 2017-10-03 15:11 | RADIOLOGY IMAGING REPORT ---
FACILITY: [facility] - [place] PATIENT NAME: Sharon Rahman : 1930 MR: [id number] V: [id number] EXAM DATE: ORDERING PHYSICIAN: NEWTON LOPEZ TECHNOLOGIST: Location: [facility] Patient: Sharon Rahman : 1930 Visit/Account:[id number] Date of Sevice: 10/03/2017 CHEST W/O CONTRAST HISTORY: Vaginal cancer. Follow-up abnormal chest CT. History of COPD. TECHNIQUE: CT chest without intravenous contrast. One of the following dose optimization techniques was utilized in the performance of this exam: Autom ated exposure control; adjustment of the mA and/or kV according to the patient's size; or use of an i terative reconstruction technique. Specific details can be referenced in the facility's radiology C T exam operational policy. CONTRAST: None. COMPARISON: CT chest dated May 22, 2017. FINDINGS: Heart/vessels: Advanced calcifications within the coronary arteries. Hypoattenuation within the blo od pool suggestive of anemia. Moderate atherosclerosis within the thoracic aorta. Otherwise negativ e. Mediastinum: Multinodular thyroid gland, unchanged. Otherwise negative. Lymph nodes: Subcentimeter lymph nodes. No pathologically enlarged lymph nodes identified. Lungs/pleura: Slight interval progression of pulmonary disease since prior exam. There is a thick-w alled heterogeneous cavitary lesion within the right lung apex with increased internal cystic compone nt. Heterogeneous pleural-based consolidation within the right middle lobe measuring up to 2.7 cm in thickness (image 167 of series 4), previously 2.4 cm. Increased nodular consolidation within the li ngula. There is irregular opacities throughout the lungs with associated diffuse bronchial wall thic kening and airway secretions/mucous plugging, slightly progressed since prior exam. Some opacities a ppear new or progressed. For example, a nodularity within the right lower lobe measures up to 7 mm ( image 190). Background of moderate to advanced emphysematous change. Visualized upper abdomen: Adenomatous thickening of the bilateral adrenal glands. Partial visualizat ion of a nonobstructing right renal stone measuring up to 4 mm. Otherwise negative. Bones/soft tissues: Postsurgical changes from right mastectomy. Mild degenerative changes throughou t the thoracic spine. IMPRESSION: 1. Diffusely abnormal appearance of the lungs with multifocal consolidation and heterogeneous opacit ies, overall slightly progressed since prior exam. There is associated diffuse bronchial wall thicke efrem with areas of mucous plugging/airway secretions. Findings are favored related to infectious pro cesses including fungal and atypical etiologies. 2. Thick-walled cavitary lesion within the right lung apex demonstrates increased cavitary component on today's exam. 3. Pleural-based consolidation within the right middle lobe appears slightly progressed. Again, thi s is favored infectious/inflammatory although malignancy cannot be completely excluded. Continued fo llow-up recommended. 4. Advanced calcifications within the coronary arteries. 5. Additional incidental/chronic finding, as above. Report Dictated By: Kj Coleman MD at 10/03/2017 2:55 PM Report E-Signed By: Kj Coleman MD at 10/03/2017 3:08 PM WSN:[id number]
== END ==
LOC: CT 02:38
PROVIDERS: ATTEND Internal Medicine
DX: I25.10 Atherosclerotic heart disease of native coronary artery without angina pectoris (principal); R91.8 Other nonspecific abnormal finding of lung field; N20.0 Calculus of kidney; Z90.11 Acquired absence of right breast and nipple
CPT/HCPCS: 71250

== ENCOUNTER 2017-10-17 12:00 | Outpatient (RCR) | payer MEDICARE ==
[2017-09-19 11:17] LABS: LDL CHOLESTEROL 54 mg/dl
[~2017-10-17 12:00] MED LIST changes: +LIDOCAINE/SOD BICARB 8.4% SYR ONE; -METF-411 PO; +METF-450 PO
[2017-10-17] MEDS ORDERED: NS(*) 0.9% 500 ML BAG 500 ML IV PRN (12:10)
[2017-10-17] MEDS ORDERED: LIDOCAINE/SOD BICARB 8.4% SYR ID PRN (12:10)
[2017-10-17] MEDS ORDERED: DEXTROSE 5%(*) 100 ML BAG 100 ML IVPB PRN (12:10)
[2017-10-17] MEDS ORDERED: NS(*) 0.9% 100 ML BAG 100 ML IVPB PRN (12:10)
[2017-10-17] MEDS ORDERED: CARV12.578 PO (12:17)
[2017-10-17 13:35] LABS: PLATELET COUNT, AUTOMATED 242 K/uL (150-450)
[2017-12-04] MEDS ORDERED: GABA-549 PO (11:35)
== END 2017-12-18 ==
LOC: SPU 12:00
PROVIDERS: ATTEND Family Medicine
DX: E11.9 Type 2 diabetes mellitus without complications (principal); E78.00 Pure hypercholesterolemia, unspecified
CPT/HCPCS: 36415; 77290; 82040; 82247; 82310; 82374; 82435; 82465; 82565; 82947; 83036; 83718; 83735; 84075; 84132; 84155; 84295; 84450; 84460; 84478; 84520; 85025; 86850; 86900; 86901; J7040

== ENCOUNTER 2017-10-24 10:27 | Outpatient (RCR) | payer MEDICARE ==
[2016-12-03 09:58] VITALS: BP 142/64
[2017-10-07 12:15] LABS: PLATELET COUNT, AUTOMATED 219 K/uL (150-450)
--- NOTE | 2017-10-10 11:32 | Oncology Progress Note ---
History of Present Illness Evaluation Evaluation Date: Oct 10, 2017 Evaluation Time: 11:28 Primary Care Provider Primary Care Provider: Jez Hines MD Accompanied by Accompanied by: Self Chief Complaint Chief Complaint Diarrhea, Low BP (83/45) and Light headedness Oncology History Oncology History Mrs. Josiah Herrera, is an 87-year-old female who has a history of non-small cell lung cancer of the left upper lobe 1.4 cm tumor treated with radiosurgery with single fraction at 34 Gy in 2012. - She had a remote history of right breast cancer status post right mastectomy in 1993, treated after that with chemotherapy and radiation therapy. 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 It was not clear whether there was cavitation versus enclosed emphysematous change in the right lung apex. There is a new hypermetabolic activity within the right apical pleural parenchymal opacities exhibiting SUV of 11.7. There are multiple new irregular bilateral pulmonary nodules. Soft tissue prominence of the vagina with SUV 15 and gynecologic consultation recommended. -Patient had a biopsy of the left labial mass on June 23, 2017 under the direction of Dr. Dalal and the pathology showed markedly complex lesion representing at least high grade squamous intraepithelial lesion JOSE 3 for sites suspicious for, but not diagnostic of early invasion. Patient saw Dr. Yessi Huber on July 17, 2017, who did not think that her disease is resectable and recommended primary chemoradiation. Patient is complaining of vaginal pain and bleeding. - And she started radiation therapy to her vaginal mass on August 21, 2017. HPI HPI Mrs. 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 history of Inflammatory breast cancer diagnosed in 1993, status post neoadjuvant chemotherapy followed by surgery and radiation therapy. s/p weekly cisplatin, currently on XRT weekly. Patient presents to cancer center complaining of chronic Diarrhea (3 BMs per day once after and another consecutively), Low BP (83/45) and Light headedness. Patient reports being in her usual state of health. Denies SOB, ( Oxygen dependent Sat 98%2L nasal canula.), no abdominal pain, no nausea, no cardiac type chest pain, no fevers, chills, nigh sweats, no changes in her apatite baseline. Significant PMH of type 2 diabetes. hypercholesterolemia. hypertension. 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 Diagnostic Studies Result Diagram: 10/07/17 1207 10/07/17 1207 Social/Occupational History Social History: Social History This is a 87 Yr old White female, she is W / and has [] Children Hx Smoking: No (QUIT 1999) Smoking Status: Former Smoker Allergies & Medications Allergies: Coded Allergies: No Known Allergies (Verified Allergy, Mild, 10/28/16) Home Meds Reported Medications Silver Sulfadiazine (SILVADENE) 20 Gm Cream..g., 20 GM TP TID 09/03/17 Acetaminophen (TYLENOL EXTRA STRENGTH) 500 Mg Tablet, 650 MG PO PRN Y for PAIN, TAB 08/20/17 Metformin Hcl (METFORMIN HCL) 500 Mg Tablet, 1 TAB PO QDAY, TAB 03/27/15 Lisinopril (LISINOPRIL) 5 Mg Tablet, 5 MG PO DAILY, #90 06/08/14 Carvedilol (CARVEDILOL) 25 Mg Tablet, 25 MG PO BID 12/16/12 Multivitamins W-Minerals (Multiple Vitamin) 1 Tab Tablet, DAILY 10/13/11 Aspirin (ADULT LOW DOSE ASPIRIN EC) 81 Mg Tablet.dr, DAILY 10/13/11 Simvastatin (Zocor) 40 Mg Tablet, 40 MG PO DAILY 10/13/11 Tiotropium [place] (Spiriva (Or Equiv)) 18 Mcg Inh, IH DAILY 10/13/11 Oxygen (Oxygen) 2 L Inha, 3 L INH, 0 Refills 3 L/min continuously. 06/14/07 Review of Systems Constitution: Positive for Fever/Chills/Sweating HEENT: No EARS: Tinnitus, No NOSE: Nasal Discharge, No THROAT: Sore Throat, No EYES: Dipolpia, No EARS: Hearing Problems, No NOSE: Epistaxis, No THROAT: Mouth Ulcers, No EYES: Vision Change, No OTHER Respiratory: Shortness of Breath (on exertion On continuous oxygen) Cardiovascular: No Chest Pain, No Orthopnea, No Edema, No Palpitations, No OTHER Gastrointestinal: No Nausea, No Vomitting, Diarrehea, No Constipation, No Heart Burn, No Swallowing Difficulties, No Abdominal Pain, No Other Gentiourinary: No Hematuria, No Dysuria, No Nocturia, No Other Musculoskeletal: Muscle Pain, No Joint Pain, No Bone Pain, No Other Hematological: No Bleeding, No Weakness, No Enlarged Lyph Nodes, No Bruising, No Fatigue, No Other Skin: No Skin Rash, No Lumps, No Erythema, No Dry Skin, No Moist Skin, No Other Psychiatric: No Anxiety, No Depression, No Other Vital Signs Vital Signs Temperature: 97.6 Pulse: 66 BP Systolic: 83 BP Diastolic: 45 Respiratory Rate: 16 O2 SAT: 98 O2 Delivery: Height (feet) Height (inches) 68.00 Weight lb: 140 Weight oz: 5.0 Weight Kg (Tito): Pain: 0 ECOG-2 Capable of all self-care but unable to carry out any work activities. Up and about >50% of waking hours Physical Exam General: Looks Stable, Other (In no acute distress) HEENT: HEAD:Atraumatic, No EYES: Conjuctivitis, No EYES: Icterus, No MOUTH: Mucocitis, No MOUTH: Oral Thrush, No SINUS: Tenderness to Palpation, No Other Neck: Supple, No Cervical Lymphadenopathy, No Subclavicular Lymphadopathy, No Thyromegaly, No Other Lungs: Clear to Auscultation, Percussion Bilaterally, Other (Diminshed) Heart: Regular Rate and Rhythm, No Gallops, No Murmurs, No Clicks, No Rubs, No Other Abdomen: Soft and Nontender, Other (Normal Bowel sounds) Extremities: No Cyanosis, No Clubbing, No Edema, No Other Lymphatics: No Peripheral Lymphadenopathy, No Other Psychiatric: Mood appears normal, Affect appears normal Skin: No Skin Rashes, No Bruising, No Purpura, No Moist Desquamation, No Dry Desquamation, No Errythema, No Mild Errythema, No Moderate Errythema, No Severe Errythema, No Induration, No Other Breast: No No Masses, No No Nipple Discharge, No No Skin Changes, No Other Assessment and Plan Assessment and Plan Mrs. 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 history of Inflammatory breast cancer diagnosed in 1993, status post neoadjuvant chemotherapy followed by surgery and radiation therapy. Patient presents to cancer center complaining of chronic Diarrhea ( 3 BMs per day one after and another consecutively), Low BP (83/45) and Light headedness. s/p weekly cisplatin, currently on XRT weekly. Significant PMH of type 2 diabetes. hypercholesterolemia. hypertension. DIAGNOSTIC DATA CBC and Chemistry panel within normal limits except hct of 26.9; Creatinine of 0.50 1. 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 PET/CT scan was done on June 18, 2017 which revealed soft tissue prominence of the vagina with SUV 15. s/p weekly cisplatin , currently on XRT weekly. 2. History of non-small cell lung cancer of the left upper lobe of the lung 1.4 cm, treated with radiosurgery with single fraction 34 Gy in 2012. 3. History of suspected inflammatory breast cancer diagnosed in 1993, status post neoadjuvant chemotherapy followed by surgery and radiation therapy. 4. Hypotension. asymptomatic at present time. patient informs that she has been having spells of lightheadedness for the last few weeks. especially when she changes position, and stands up. " I am good sitting, is when I get up, it hits me." On reviewing patients medications she is taking carvedilol 50mg Po daily, combined with lisinopril 5mg daily. Patient is very compliance with her medication regimen. Patient instructed to hold BP medication dose for tomorrow. We will hydrate with NS1 Liter Now, and revaluate onMOnday. patint instructed to go . CHRONIC 2. History of type 2 diabetes.Metformin 500 mg daily 3. History of hypercholesterolemia. 4. History of hypertension. Simvastatin 40 mg daily. 5. History of breast carcinoma. PLAN #1 NS 1liter IV please infuse over 90 minutes #2 Patient to hold Carvedilol 25mgPO dose for tonight. and hold Carvedilol 25mgPO tomorrow's 10/11/2017Friday both AM/PM doses #3 patient to Hold lisinopril Dose of 5mg Po tomorrow Friday10/11/2017 #4 Patient May resume lisinopril 5mg PO On Friday10/12/2017 #5 Patient to take 12.5mg of carvedilol on Friday Am, and 12.5mg on Friday PM #6 Patient to Get an appointment with Dr. Hines to reconcile medications. #7 Nursing staff to check Bp on Friday during patient radiation therapy. # Patient to bring Blood pressure medications with her to the radiation appointment on Friday. 10/13/2017 #8 Patient to Hold BP meds on Friday, prior to us checking her BP. Patient to see me at 0930 Am and to bring her Bp meds with her. We will admin BP Meds at the clinic on Friday.10/13/2017 #9 Patient may take 2 tablets of Imodium OTC every a.m., followed by one Of Imodium with each bowel movement, up to 8 tabs per day. #10 Patient to call clinic with any issues or concerns. Education, patient instructed to go to ER immediately and or call Clinic if any SOB,Dizziness, fainting, extrem fatigue. fevers, chills, cardiac type chest pain , bleeding, excessive bruising, headaches, blurry vision, and pain unrelieved by medication. TIME SPENT: 25 minutes 20 > minutes includes but not limited to discussion, counselling and co-ordination~ of care. Discussion with other health care providers, record review, review of lab work, diagnostic tests.Plan discussed extensively with patient. All the questions answered today. Thank you for the opportunity to be involved in the care of Billing Level: Return visit 4 CHRISTINA ATWOOD, ONC Oct 10, 2017 11:32
--- NOTE | 2017-10-17 13:06 | Oncology Note ---
Social/Occupational History Social History: Social History This is a 87 Yr old White female, she is W / and has [] Children Hx Smoking: No (QUIT 1999) Smoking Status: Former Smoker Preventative Preventative Allergies & Medications Allergies: Coded Allergies: No Known Allergies (Verified Allergy, Mild, 10/28/16) Home Meds Reported Medications Silver Sulfadiazine (SILVADENE) 20 Gm Cream..g., 20 GM TP TID 09/03/17 Acetaminophen (TYLENOL EXTRA STRENGTH) 500 Mg Tablet, 650 MG PO PRN Y for PAIN, TAB 08/20/17 Metformin Hcl (METFORMIN HCL) 500 Mg Tablet, 1 TAB PO QDAY, TAB 03/27/15 Lisinopril (LISINOPRIL) 5 Mg Tablet, 5 MG PO DAILY, #90 06/08/14 Carvedilol (CARVEDILOL) 12.5 Mg Tablet, 12.5 MG PO BID 12/16/12 Multivitamins W-Minerals (Multiple Vitamin) 1 Tab Tablet, DAILY 10/13/11 Aspirin (ADULT LOW DOSE ASPIRIN EC) 81 Mg Tablet.dr, DAILY 10/13/11 Simvastatin (Zocor) 40 Mg Tablet, 40 MG PO DAILY 10/13/11 Tiotropium [place] (Spiriva (Or Equiv)) 18 Mcg Inh, IH DAILY 10/13/11 Oxygen (Oxygen) 2 L Inha, 3 L INH, 0 Refills 3 L/min continuously. 06/14/07 Review of Systems Constitution: No Fever/Chills/Sweating HEENT: No EARS: Tinnitus, No NOSE: Nasal Discharge, No THROAT: Sore Throat, No EYES: Dipolpia, No EARS: Hearing Problems, No NOSE: Epistaxis, No THROAT: Mouth Ulcers, No EYES: Vision Change, No OTHER Respiratory: Shortness of Breath (on exertion On continuous oxygen) Cardiovascular: No Chest Pain, No Orthopnea, No Edema, No Palpitations, No OTHER Gastrointestinal: No Nausea, No Vomitting,+Constipation, No Heart Burn, No Swallowing Difficulties, No Abdominal Pain, No Other Gentiourinary: No Hematuria, No Dysuria, No Nocturia, No Other Musculoskeletal: Muscle Pain, No Joint Pain, No Bone Pain, No Other Hematological: No Bleeding, No Weakness, No Enlarged Lymph Nodes, No Bruising, No Fatigue, No Other Skin: No Skin Rash, No Lumps, No Erythema, No Dry Skin, No Moist Skin, No Other. +Scant amount of rectal bleeding Psychiatric: No Anxiety, No Depression, No Other Vital Signs Vital Signs Temperature: 97.6 Pulse: 66 BP Systolic: 125 BP Diastolic: 69 Respiratory Rate: 16 O2 SAT: 95% O2 Delivery: 1.5L Height (feet) Height (inches) 68.00 Weight lb: 140 Weight oz: 5.0 Weight Kg (Tito): Pain: 0 ECOG-2 Capable of all self-care but unable to carry out any work activities. Up and about >50% of waking hours Physical Exam General: Looks Stable, Other (In no acute distress), appears weak and dehydrated HEENT: HEAD:Atraumatic, No EYES: Conjuctivitis, No EYES: Icterus, No MOUTH: Mucocitis, No MOUTH: Oral Thrush, No SINUS: Tenderness to Palpation, No Other Neck: Supple, No Cervical Lymphadenopathy, No Subclavicular Lymphadopathy, No Thyromegaly, No Other Lungs: Clear to Auscultation, Percussion Bilaterally, Other (Diminshed) Heart: Regular Rate and Rhythm, No Gallops, No Murmurs, No Clicks, No Rubs, No Other Abdomen: Soft and Nontender, Other (Normal Bowel sounds) Extremities: No Cyanosis, No Clubbing, No Edema, No Other Lymphatics: No Peripheral Lymphadenopathy, No Other Psychiatric: Mood appears normal, Affect appears normal Skin: No Skin Rashes, No Bruising, No Purpura, No Moist Desquamation, No Dry Desquamation, No Errythema, No Mild Errythema, No Moderate Errythema, No Severe Errythema, No Induration, No Other Breast: No No Masses, No No Nipple Discharge, No No Skin Changes, No Other Allergies & Medications Allergies: Coded Allergies: No Known Allergies (Verified Allergy, Mild, 10/28/16) Home Meds Active Scripts Carvedilol (CARVEDILOL) 12.5 Mg Tablet, 12.5 MG PO BID, #10 TAB Prov:CHRISTINA ATWOOD OPERATIONS INSPECTOR-C, ONC 10/17/17 Reported Medications Silver Sulfadiazine (SILVADENE) 20 Gm Cream..g., 20 GM TP TID 09/03/17 Acetaminophen (TYLENOL EXTRA STRENGTH) 500 Mg Tablet, 650 MG PO PRN Y for PAIN, TAB 08/20/17 Metformin Hcl (METFORMIN HCL) 500 Mg Tablet, 1 TAB PO QDAY, TAB 03/27/15 Lisinopril (LISINOPRIL) 5 Mg Tablet, 5 MG PO DAILY, #90 06/08/14 Multivitamins W-Minerals (Multiple Vitamin) 1 Tab Tablet, DAILY 10/13/11 Aspirin (ADULT LOW DOSE ASPIRIN EC) 81 Mg Tablet.dr, DAILY 10/13/11 Simvastatin (Zocor) 40 Mg Tablet, 40 MG PO DAILY 10/13/11 Tiotropium [place] (Spiriva (Or Equiv)) 18 Mcg Inh, IH DAILY 10/13/11 Oxygen (Oxygen) 2 L Inha, 3 L INH, 0 Refills 3 L/min continuously. 06/14/07 Discontinued Reported Medications Carvedilol (CARVEDILOL) 25 Mg Tablet, 25 MG PO BID 12/16/12 Evaluation Date: Oct 17, 2017 Evaluation Time: 11:00 Chief Complaint Chief Complaint Constipation + scant amount rectal bleeding Oncology History Oncology History Mrs. Josiah Herrera, is an 87-year-old female who has a history of non-small cell lung cancer of the left upper lobe 1.4 cm tumor treated with radiosurgery with single fraction at 34 Gy in 2012. - She had a remote history of right breast cancer status post right mastectomy in 1993, treated after that with chemotherapy and radiation therapy. 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 It was not clear whether there was cavitation versus enclosed emphysematous change in the right lung apex. There is a new hypermetabolic activity within the right apical pleural parenchymal opacities exhibiting SUV of 11.7. There are multiple new irregular bilateral pulmonary nodules. Soft tissue prominence of the vagina with SUV 15 and gynecologic consultation recommended. -Patient had a biopsy of the left labial mass on June 23, 2017 under the direction of Dr. Dalal and the pathology showed markedly complex lesion representing at least high grade squamous intraepithelial lesion JOSE 3 for sites suspicious for, but not diagnostic of early invasion. Patient saw Dr. Yessi Huber on July 17, 2017, who did not think that her disease is resectable and recommended primary chemoradiation. Patient is complaining of vaginal pain and bleeding. - And she started radiation therapy to her vaginal mass on August 21, 2017. HPI Mrs. 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 history of Inflammatory breast cancer diagnosed in 1993, status post neoadjuvant chemotherapy followed by surgery and radiation therapy. S/p weekly cisplatin, currently on XRT weekly for her vaginal mass on August 21, 2017. Patient presents to cancer center complaining of constipation with scant amount of rectal bleeding. Patient denies vaginal bleeding. reports SOB, ( Oxygen dependent Sat 98%2L nasal canula.), no abdominal pain, no nausea, no cardiac type chest pain, no fevers, no chills, no night sweats, no changes in her appetite baseline. Significant PMH of type 2 diabetes. hypercholesterolemia. hypertension. 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 DIAGNOSTIC DATA WBC 7.7; Hgb 9.5; HCt 28.1; platelet count 242; ANC 6.8 and Chemistry panel pending. 1. Anemia. HGB today s , post hydration, patient reports feeling really fatigue for the last 2 week aprox. given antineoplastic treatment. We may provide blood products transfusion support if Hgb</=8.0 2. Constipation. one day bowel regimen initiated today. multifactorial in the setting of chronic diarrhea, and daily intake of Imodium. 3. 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 PET/CT scan was done on June 18, 2017 which revealed soft tissue prominence of the vagina with SUV 15. s/p weekly cisplatin , currently on XRT weekly. 4. History of non-small cell lung cancer of the left upper lobe of the lung 1.4 cm, treated with radiosurgery with single fraction 34 Gy in 2012. 5. History of suspected inflammatory breast cancer diagnosed in 1993, status post neoadjuvant chemotherapy followed by surgery and radiation therapy. 6. Hypotension. resolved, after titration of carvedilol from 25mg Po BID to 12.5mg PO BID. 7. Diarrhea. resolving on Immodiun. Instructed to Hold. CHRONIC 2. History of type 2 diabetes.Metformin 500 mg daily 3. History of hypercholesterolemia. 4. History of hypertension. Simvastatin 40 mg daily. 5. History of breast carcinoma. 6. Fatigue 7. Dehydration PLAN #1 NS 500mL IV x1 now, for dehydration #2 CBC,CMP, Mag, type and cross after hydration #3 patient to take following bowel regimen x1 day . colace TID today, Sennokot 1 tab for tonight 10/17/17 and tomorrow night 10/18/17. Miralax 1 dose x1 today. #4 Patient to call center on Friday, or go to ER immediately if Abdominal distention, pain, and no BM in next day. #5 Patient recently had a visit with [employer], RN to please get reports. #6 Patient HOLD Imodium until further notice #7 10 Patient to call clinic with any vaginal bleeding, issues or concerns. Education, patient instructed to go to ER immediately and or call Clinic if any SOB,Dizziness, fainting, vaginal bleeding, unresolved constipation, extreme fatigue. fevers, chills, cardiac type chest pain, bleeding, excessive bruising, headaches, blurry vision, and pain unrelieved by medication. TIME SPENT: 25 minutes 20 > minutes includes but not limited to discussion, counselling and co-ordination~ of care. Discussion with other health care providers, record review, review of lab work, diagnostic tests.Plan discussed extensively with patient. All the questions answered today. Thank you for the opportunity to be involved in the care of Josiah Herrera. Billing Level: Return visit 4 CHRISTINA ATWOOD, ONC Oct 17, 2017 13:06
[~2017-10-24 10:27] MED LIST changes: +CARV12.578 PO; +LIDOCAINE/SOD BICARB 8.4% SYR ID PRN; -LIDOCAINE/SOD BICARB 8.4% SYR ONE; +METF-411 PO; -METF-450 PO; +NS(*) 0.9% 100 ML BAG 100 ML IVPB PRN; +NS(*) 0.9% 1000 ML BAG 1,000 ML IV PRN
== END 2017-10-30 14:16 | disposition home or self-care (01) ==
LOC: RAON 10:27
PROVIDERS: ATTEND Radiology Radiation Oncology
DX: Z51.0 Encounter for antineoplastic radiation therapy (principal); C34.12 Malignant neoplasm of upper lobe, left bronchus or lung; C51.9 Malignant neoplasm of vulva, unspecified; Z85.3 Personal history of malignant neoplasm of breast; R91.8 Other nonspecific abnormal finding of lung field; Z90.11 Acquired absence of right breast and nipple; E11.9 Type 2 diabetes mellitus without complications; E78.00 Pure hypercholesterolemia, unspecified; I10 Essential (primary) hypertension; Z92.3 Personal history of irradiation; Z79.82 Long term (current) use of aspirin; Z79.899 Other long term (current) drug therapy; Z92.21 Personal history of antineoplastic chemotherapy
CPT/HCPCS: 77280; 77290; 77336; 77386; 85025; J7030; 36415; 71250; 77300; 77301; 77338; 82040; 82247; 82310; 82374; 82435; 82465; 82565; 82947; 83036; 83718; 83735; 84075; 84132; 84155; 84295; 84450; 84460; 84478; 84520; 86850; 86900; 86901; J7040

== ENCOUNTER 2017-11-25 10:21 | Outpatient (RCR) | payer MEDICARE ==
[2016-12-03 09:58] VITALS: BP 142/64
[~2017-11-25 10:21] MED LIST changes: -LIDOCAINE/SOD BICARB 8.4% SYR ID PRN; -METF-411 PO; +METF-450 PO; -NS(*) 0.9% 100 ML BAG 100 ML IVPB PRN; -NS(*) 0.9% 1000 ML BAG 1,000 ML IV PRN
[2017-12-04] MEDS ORDERED: GABA-549 PO (11:35)
== END 2018-01-26 14:32 | disposition home or self-care (01) ==
LOC: RAON 10:21
PROVIDERS: ATTEND Radiology Radiation Oncology
DX: C52 Malignant neoplasm of vagina (principal)
CPT/HCPCS: 99213

== ENCOUNTER → 2017-12-22 | Outpatient (CLI) | payer MEDICARE ==
[~2017-12-22] MED LIST changes: +GABA-549 PO
== END ==
LOC: LAB 15:45
PROVIDERS: ATTEND Internal Medicine
DX: B44.1 Other pulmonary aspergillosis (principal)
CPT/HCPCS: 36415; 82040; 82247; 82310; 82374; 82435; 82565; 82947; 84075; 84132; 84155; 84295; 84450; 84460; 84520; 86480

== ENCOUNTER → 2018-04-13 | Outpatient (CLI) | payer MEDICARE ==
--- NOTE | 2018-04-13 16:28 | RADIOLOGY IMAGING REPORT ---
FACILITY: PATIENT NAME: Sharon Rahman : 1930 MR: [id number] V: [id number] EXAM DATE: ORDERING PHYSICIAN: NEWTON LOPEZ TECHNOLOGIST: Location: [facility] Patient: Sharon Rahman : 1930 Visit/Account:[id number] Date of Sevice: 04/13/2018 CT CHEST W/O CONTRAST HISTORY: Chronic pulmonary aspergillosis TECHNIQUE: CT chest without intravenous contrast. Contiguous helical images was performed from the l serjio apices to below the diaphragm. One of the following dose optimization techniques was utilized in the performance of this exam: Autom ated exposure control; adjustment of the mA and/or kV according to the patient's size; or use of an i terative reconstruction technique. Specific details can be referenced in the facility's radiology C T exam operational policy. CONTRAST: None. COMPARISON: CT chest 10/03/2017 as well as priors, CT cervical spine 10/28/2016 FINDINGS: Heart/vessels: Atherosclerotic calcification of the great vessels, thoracic aorta, aortic valve, cor onary vessels and abdominal aorta is noted. Abdominal aortic aneurysm measures at least 3.2 cm but i s incompletely imaged. Mediastinum: Negative. Lymph nodes: Negative. Lungs/pleura: Reidentified is a grossly abnormal lung parenchyma. Patient has a background of emphy sema. Chronic scarring and cavitary right apical lesion is unchanged. The cavitary portion measures 3.7 x 2.8 cm which is stable. There is some worsening interstitial nodularity in both lower lobes and the lingula. Area of consolidation left upper lobe image 41 measures 2.3 x 1.8 cm which is more prominent. Right middle lobe pleural-based consolidation image 52 measures 4.6 x 2.7 cm stable from prior exam. Pleural nodularity at the right lung base is more prominent with a patient portal representative pleural nodule elizabeth uring 1.9 x 0.8 cm on image 82. There appears to be some mucous plugging at the lung bases as well. Right lower lobe pleural-based consolidation image 42 measures 2 x 1.5 cm new from prior exam. Visualized upper abdomen: Negative. Bones/soft tissues: Reidentified is a round soft tissue mass in the right supraglottic space image 1 measuring 1.7 x 1.2 cm. In retrospect this was present on CT of the neck 10/28/2016. Recommend dire ct visualization as malignancy is not excluded. The osseous structures demonstrate degenerative changes. Postoperative changes are noted from right mastectomy. IMPRESSION: 1. Reidentified is a grossly abnormal lung parenchyma. The cavitary right apical lesion is stable w ith chronic right upper lobe scarring. 2. Interstitial nodularity, consolidation and pleural nodularity at the lung bases has worsened. Th is is seen amongst a background of emphysema and some mucous plugging. 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 The pulmonary findings could represent chronic pulmonary aspergillosis altho ugh malignancy would be difficult to exclude. Continued surveillance is suggested. 3. 1.7 x 1.2 cm right supraglottic neck mass and retrospect stable from CT neck 10/28/2016. Recommen d direct visualization for further evaluation. 4. Postoperative changes are noted from right mastectomy. Report Dictated By: Rosendo Casas MD at 04/13/2018 4:05 PM Report E-Signed By: Rosendo Casas MD at 04/13/2018 4:25 PM WSN:[id number]
== END ==
LOC: CT 03:49
PROVIDERS: ATTEND Internal Medicine
DX: J98.4 Other disorders of lung (principal); R91.1 Solitary pulmonary nodule; Z90.11 Acquired absence of right breast and nipple; B44.1 Other pulmonary aspergillosis
CPT/HCPCS: 71250

== ENCOUNTER → 2018-05-14 | Outpatient (CLI) | payer MEDICARE | LOC: LAB 15:19 | PROVIDERS: ATTEND Internal Medicine | DX: B44.1 Other pulmonary aspergillosis (principal) | CPT/HCPCS: 36415; 82040; 82247; 82310; 82374; 82435; 82565; 82947; 84075; 84132; 84155; 84295; 84450; 84460; 84520 ==

== ENCOUNTER → 2018-08-13 | Outpatient (CLI) | payer MEDICARE ==
--- NOTE | 2018-08-13 15:00 | RADIOLOGY IMAGING REPORT ---
FACILITY: [facility] PATIENT NAME: Sharon Rahman : 1930 MR: [id number] V: [id number] EXAM DATE: ORDERING PHYSICIAN: NEWTON LOPEZ TECHNOLOGIST: Location: [facility] Patient: Sharon Rahman : 1930 Visit/Account:[id number] Date of Sevice: 08/13/2018 Chest 2 views: HISTORY: Centrilobular emphysema. COMPARISON: 08/21/2016, CT scan 04/13/2018 FINDINGS: Frontal and lateral chest: Heart size is within normal limits. Mediastinal contours are un changed. Lungs are hyperexpanded consistent with emphysematous changes. There is a thick-walled cav itary lesion seen on CT scan which is difficult to appreciate by plain film. There are now patchy ar eas of groundglass opacity in both lungs, new compared to previous. This is more extensive on the ri ght compared to the left. There is also blunting of the right costophrenic sulcus, pleural fluid and /or thickening. Focal consolidation is present in the right middle lobe. Overall, interstitial joe ings are prominent. Biapical pleural thickening right greater than left is present. Patient status post right mastectomy and lymph node dissection. Surgical clips present in the right axilla. Atherosclerotic changes are present in the aorta. Bones are osteopenic. Degenerative changes present in the thoracic spine. IMPRESSION: 1. Pulmonary hyperexpansion and prominent interstitial markings similar to previous. Findings are c onsistent with the patient's diagnosis of emphysema. 2. Patchy areas of groundglass opacity and small right pleural effusion, new compared to previous est x-ray. This airspace opacity appears more confluent and widespread compared to the recent chest CT. Cavitary lesion seen in the right lung apex is not well demonstrated by CT. 3. Small right pleural effusion or pleural thickening. There is also consolidation in the right mid dle lobe, present on the prior chest CT. Report Dictated By: Alley Rose MD at 08/13/2018 2:44 PM Report E-Signed By: Alley Rose MD at 08/13/2018 2:55 PM WSN:[id number]
== END ==
LOC: RAD 14:15
PROVIDERS: ATTEND Internal Medicine
DX: J43.2 Centrilobular emphysema (principal)
CPT/HCPCS: 71046

== ENCOUNTER → 2018-09-29 | Outpatient (REF) | payer MEDICARE | LOC: ZZSENDIN 14:01 | PROVIDERS: ATTEND Family Medicine | DX: R35.0 Frequency of micturition (principal) | CPT/HCPCS: 81001; 87088 ==